=== PATIENT | female | born 1945 | race Caucasian/White ===

== ENCOUNTER 2016-09-01 12:32 | Emergency (ER) | payer OTHER ==
[~2016-09-01] VITALS: Ht 152.4 cm; Wt 65.0 kg
[2016-09-01 12:34] VITALS: BP 178/101; PULSE 101; RESP 18; TEMP 97.9; O2SAT 98
[2016-09-01 13:21] LABS: AUTOMATED NEUTROPHIL # 5.3 TH/MM3 (1.8-7.7); BASOPHIL % 0.5 % (0.0-2.0); EOSINOPHIL # 0.1 TH/MM3 (0-0.4); EOSINOPHIL % 1.2 % (0.0-4.0); HEMATOCRIT 39.6 % (35.0-46.0); HEMO FLAGS DIFF FINAL; LYMPH % 22.6 % (9.0-44.0); LYMPHOCYTE # 1.7 TH/MM3 (1.0-4.8); MEAN CELL VOLUME 85.1 FL (80.0-100.0); MEAN CORPUSCULAR HEMOGLOBIN 28.5 PG (27.0-34.0); MEAN CORPUSCULAR HGB CONC 33.5 % (32.0-36.0); MONO % 5.9 % (0.0-8.0); NEUT % 69.8 % (16.0-70.0); PLATELET COUNT 327 TH/MM3 (150-450); RED BLOOD COUNT 4.66 MIL/MM3 (4.00-5.30); RED CELL DISTRIBUTION WIDTH 14.1 % (11.6-17.2); WHITE BLOOD COUNT 7.7 TH/MM3 (4.0-11.0)
[2016-09-01 13:23] LABS: BACTERIA, URINE FEW /hpf; BLOOD, URINE NEG (NEG); COMMENT (UR) CULT NOT INDICATED; CULTURE IF INDICATED CULT NOT INDICATED; GLUCOSE,URINE NEG (NEG); KETONE, URINE NEG (NEG); MUCUS URINE FEW /lpf (OCC); NITRITE,URINE NEG (NEG); PH, URINE 5.5 (5.0-8.5); SQUAMOUS EPITHELIAL CELL URINE 6 /hpf (0-5); URINE COLOR YELLOW (YELLW/STRAW)
[2016-09-01 13:36] VITALS: O2SAT 99
[2016-09-01 13:36] LABS: ALT (GPT) 30 U/L (10-53); ANION GAP 7 MEQ/L (5-15); AST (GOT) 19 U/L (15-37); BICARBONATE 24.4 MEQ/L (21.0-32.0); BLOOD UREA NITROGEN 11 MG/DL (7-18); CHLORIDE 108 MEQ/L (98-107); GLOMERULAR FILTRATION RATE 90 ML/MIN (>89); POTASSIUM 4.3 MEQ/L (3.5-5.1); SODIUM (NA) 139 MEQ/L (136-145)
[2016-09-01 13:38] LABS: ALKALINE PHOSPHATASE 92 U/L (45-117); TOTAL BILIRUBIN ADULT 0.3 MG/DL (0.2-1.0)
[2016-09-01] MEDS ORDERED: IOHEXOL 350 MG/ML 10 ML VIAL (for RAD DIAG) IV ONE (14:32)
--- NOTE | 2016-09-01 14:59 | RADRPT ---
EXAM DATE/TIME: 09/01/2016 14:22 [place] COMPARISON: No previous studies available for comparison. INDICATIONS : Right lower quadrant pain IV CONTRAST: 96 cc Omnipaque 350 (iohexol) IV ORAL CONTRAST: No oral contrast ingested. RADIATION DOSE: 15.09 CTDIvol (mGy) MEDICAL HISTORY : None SURGICAL HISTORY : Hysterectomy. ENCOUNTER: Initial ACUITY: 3 days PAIN SCALE: 5/10 LOCATION: Right lower quadrant TECHNIQUE: Volumetric scanning of the abdomen and pelvis was performed. Using automated exposure control and ad justment of the mA and/or kV according to patient size, radiation dose was kept as low as reasonably achievable to obtain optimal diagnostic quality images. DICOM format image data is available electro nically for review and comparison. FINDINGS: The lung base is are clear. The liver is free of focal defects. Calcified gallstones are evident in contracted gallbladder with mimimal wall thickening. The pancreas, spleen and adrenals are unremark able. There is symmetrical renal function There is no retroperitoneal adenopathy The region of the cecum and terminal unremarkable. Pelvis there is no ascites or adenopathy. There is no evidence for diverticulitis. Review of bone windows reveals only degenerative changes. CONCLUSION: Gallstones is small contracted gallbladder I don't see an etiology for patient's right lower quadrant pain. Rigoberto Pearl MD FACR on September 01, 2016 at 14:53 Board Certified Radiologist. This report was verified electronically.
[2016-09-01 15:01] VITALS: BP 178/84; PULSE 66; RESP 16; O2SAT 99
--- NOTE | 2016-09-01 15:05 | PD ---
HPI Chief Complaint: Abdominal Pain Time Seen by Provider: 12:53 Travel History International Travel<30 days: No Contact w/Intl Traveler<30days: No Traveled to known affect area: No History of Present Illness HPI This is a 71-year-old female who presents to the emergency department with abdominal discomfort that has been going on for 1 month intermittently, worse in the right lower quadrant, moderate severity, nonradiating, with no associated vomiting, fevers or chills. She has had some loose stool and says that she had to [place] to the bathroom yesterday in order to not be incontinent. She says she saw a doctor about a month ago regarding this pain and she thought it might be a kidney stone. She says her symptoms haven't improved so she decided to come to the emergency department. [facility] Past Medical History Diminished Hearing: No Tetanus Vaccination: < 5 Years Influenza Vaccination: Yes Social History Alcohol Use: No Tobacco Use: No Substance Use: No Review of Systems Except as stated in HPI: all other systems reviewed are Neg Physical Exam Narrative GENERAL:Well appearing, no acute distress SKIN: Focused skin assessment warm and dry. HEAD: Atraumatic. Normocephalic. EYES: Pupils equal and round. No injection or drainage. ENT: Moist mucous membranes NECK: Trachea midline. CARDIOVASCULAR: Regular rate and rhythm. No murmur appreciated. RESPIRATORY: Clear to auscultation. Breath sounds equal bilaterally. GASTROINTESTINAL: Abdomen soft, tender to palpation in the right lower quadrant with no rebound or guarding. MUSCULOSKELETAL: No obvious deformities. NEUROLOGICAL: Awake and alert. No obvious cranial nerve deficits. Moving all extremities. PSYCHIATRIC: Appropriate mood and affect; insight and judgment normal. Data Data Last Documented VS Vital Signs Date Time Temp Pulse Resp B/P Pulse Ox O2 Delivery O2 Flow Rate FiO2 09/01/16 15:01 66 16 178/84 99 Room Air 09/01/16 12:34 97.9 Orders Complete Blood Count With Diff (09/01/16 13:01) Comprehensive Metabolic Panel (09/01/16 13:01) Urinalysis - C+S If Indicated (09/01/16 13:01) Ct Abd/Pel W Iv Contrast(Rout) (09/01/16 13:01) Iv Access Insert/Monitor (09/01/16 13:01) Ecg Monitoring (09/01/16 13:01) Oximetry (09/01/16 13:01) Iohexol 350 Inj (Omnipaque 350 Inj) (09/01/16 14:32) Labs Laboratory Tests Test 09/01/16 13:10 White Blood Count 7.7 TH/MM3 Red Blood Count 4.66 MIL/MM3 Hemoglobin 13.3 GM/DL Hematocrit 39.6 % Mean Corpuscular Volume 85.1 FL Mean Corpuscular Hemoglobin 28.5 PG Mean Corpuscular Hemoglobin 33.5 % Concent Red Cell Distribution Width 14.1 % Platelet Count 327 TH/MM3 Mean Platelet Volume 7.3 FL Neutrophils (%) (Auto) 69.8 % Lymphocytes (%) (Auto) 22.6 % Monocytes (%) (Auto) 5.9 % Eosinophils (%) (Auto) 1.2 % Basophils (%) (Auto) 0.5 % Neutrophils # (Auto) 5.3 TH/MM3 Lymphocytes # (Auto) 1.7 TH/MM3 Monocytes # (Auto) 0.5 TH/MM3 Eosinophils # (Auto) 0.1 TH/MM3 Basophils # (Auto) 0.0 TH/MM3 CBC Comment DIFF FINAL Differential Comment Urine Color YELLOW Urine Turbidity HAZY Urine pH 5.5 Urine Specific [place] 1.024 Urine Protein TRACE mg/dL Urine Glucose (UA) NEG mg/dL Urine Ketones NEG mg/dL Urine Occult Blood NEG Urine Nitrite NEG Urine Bilirubin NEG Urine Urobilinogen LESS THAN 2.0 MG/DL Urine Leukocyte Esterase NEG Urine RBC LESS THAN 1 /hpf Urine WBC 1 /hpf Urine Squamous Epithelial 6 /hpf Cells Urine Bacteria FEW /hpf Urine Mucus FEW /lpf Microscopic Urinalysis Comment CULT NOT INDICATED Sodium Level 139 MEQ/L Potassium Level 4.3 MEQ/L Chloride Level 108 MEQ/L Carbon Dioxide Level 24.4 MEQ/L Anion Gap 7 MEQ/L Blood Urea Nitrogen 11 MG/DL Creatinine 0.65 MG/DL Estimat Glomerular Filtration 90 ML/MIN Rate Random Glucose 103 MG/DL Calcium Level 8.6 MG/DL Total Bilirubin 0.3 MG/DL Aspartate Amino Transf 19 U/L (AST/SGOT) Alanine Aminotransferase 30 U/L (ALT/SGPT) Alkaline Phosphatase 92 U/L Total Protein 7.2 GM/DL Albumin 3.2 GM/DL MDM Medical Decision Making Medical Screen Exam Complete: Yes Emergency Medical Condition: Yes Interpretation(s) Afebrile, mild tachycardia, hypertension No leukocytosis Electrolytes are reassuring Urinalysis is negative for infection CT abdomen and pelvis: No acute process Differential Diagnosis Appendicitis, kidney stone, tumor, colitis Narrative Course This is a 71-year-old female who presents to the emergency department with abdominal discomfort that's been going on for about a month. She is tender in the right lower quadrant but otherwise very well-appearing. an IV was established. Labs are obtained which were all reassuring. CT abdomen and pelvis is negative for acute process. I think patient can safely be discharged to follow-up with GI doctor. Diagnosis Primary Impression: Abdominal pain Qualified Code: R10.31 - Right lower quadrant abdominal pain Referrals: [facility] Patient Instructions: General Instructions Additional Instructions: If you develop severe or worsening abdominal pain, fever>100.4, persistent vomiting or inability to eat or drink return to the emergency department immediately. Follow up with your primary care physician in 1-2 days for a check-up. Med/Other Pt SpecificInfo: No Change to Meds Disposition: 01 DISCHARGE HOME Condition: Stable Sharlene Galaviz MD Sep 01, 2016 15:05
== END 2016-09-01 15:34 | disposition home or self-care (01) ==
LOC: NEPD 12:32
DX: R10.31 Right lower quadrant pain (principal); R00.0 Tachycardia, unspecified; I10 Essential (primary) hypertension
CPT/HCPCS: 74177; 80053; 81001; 85025; 99285; Q9967